=== PATIENT | male | born 1965 | race Caucasian/White ===

== ENCOUNTER 2025-04-22 16:56 | Inpatient (IN) | payer MEDICAID ==
[2025-04-22] VITALS (11 sets, daily range): BP systolic 97–115; BP diastolic 68–76; PULSE 99–135; RESP 25–40; TEMP 37.2; O2SAT 92–100
[~2025-04-22] VITALS: Ht 172.7 cm; Wt 93.9 kg
[2025-04-22] MEDS: SODIUM CHLORIDE 0.9% (SEPSIS BOLUS) IV ONE (17:20)
[2025-04-22 17:33] LABS: BASOPHILS % 0.9 % (0.0-2.0); EOSINOPHILS % 0.0 % (0.0-5.0); HEMATOCRIT. 36.5 % (42.0-52.0); HEMOGLOBIN. 10.9 g/dL (14.0-18.0); LYMPHOCYTES % 22.3 % (20.0-50.0); MEAN PLATELET VOLUME 10.8 fl (7.4-10.4); MONOCYTES % 2.7 % (2.0-8.0); NEUTROPHILS % 74.1 % (40.0-76.0); PLATELET 298 x1000/uL (130-400); RED BLOOD CELL COUNT 3.79 mill/uL (4.7-6.1); RED CELL DISTRIBUTION WIDTH 18.6 % (11.6-14.6)
[2025-04-22] MEDS: CEFTRIAXONE 1GM/50ML 50 ML IV ONE (17:39)
[2025-04-22 17:45] LABS: INR 1.2
[2025-04-22] MEDS ORDERED: MIDAZOLAM 100MG/100ML PMX 100 ML IV PRN ×2 (17:45→19:30)
[2025-04-22 17:46] LABS: CREATININE 2.6 mg/dL (0.6-1.3)
[2025-04-22 17:48] LABS: ASPARTATE AMINOTRANSFERASE 218 IU/L (<34); BILIRUBIN DIRECT 0.3 mg/dL (<=3.0)
[2025-04-22] MEDS: ALBUTEROL (0.083%) 2.5MG/3ML NEB HHN SCH (17:48)
[2025-04-22] MEDS: IPRATROPIUM BROMIDE (0.02%) 0.5MG/2.5ML NEB HHN SCH (17:48)
[2025-04-22 17:49] LABS: BILIRUBIN TOTAL 0.5 mg/dL (0.1-1.0); PROTEIN TOTAL 6.1 g/dL (6.0-8.3)
[2025-04-22] MEDS: ACETAMINOPHEN 1000MG/100ML 100 ML IV ONE (17:51)
[2025-04-22 17:59] LABS: TROPONIN I HIGH SENSITIVITY 349 ng/L (3.0-53); UREA NITROGEN BLOOD 104 mg/dL (9-23)
[2025-04-22] MEDS: AZITHROMYCIN 500MG/250ML 250 ML IV ONE (18:15)
[2025-04-22] MEDS: SODIUM CHLORIDE 0.9% 1,000 ML IV ONE (18:20)
[2025-04-22 18:55] LABS: BG BASE EXCESS -4.0 mmol/L (-2.0-3.0); BG CARBOXYHEMOGLOBIN 0.3 % (0.5-1.5); BG DEOXYHEMOGLOBIN 1.0 % (0.0-5.0); BG FRACTION INSPIRED OXYGEN 100; BG HCO3 ACT 21.1 mmol/L (21.0-28.0); BG METHEMOGLOBIN 0.3 % (0.5-1.5); BG OXYGEN SATURATION 99.0 % (94.0-98.0); BG OXYHEMOGLOBIN 98.4 % (94.0-98.0); BG PCO2 38.3 mmHg (35.0-48.0); BG PEEP (cmH2O) 5.0 cmH2O; BG PH 7.358 (7.350-7.450); BG PO2 148.7 mmHg (83.0-108.0); BG SAMPLE SITE RIGHT RADIAL; BG TIDAL VOLUME(mL) 500.0 mL; BG TOTAL HEMOGLOBIN 10.4 g/dL (13.5-17.5); BG VENT MODE VENT - AC; BG VENT RATE 18.0 set
[2025-04-22] MEDS: NOREPINEPHRINE 8MG/250ML PMX 250 ML IV PRN (19:15)
[2025-04-22] MEDS ORDERED: GUAIFENESIN 200MG/10ML SUGAR FREE UDC PO PRN (20:45)
[2025-04-22] MEDS ORDERED: ONDANSETRON HCL 4MG/2ML INJ IV PRN (20:45)
[2025-04-22] MEDS ORDERED: DEXTROSE 50% WATER 50ML SYRINGE IV PRN (20:45)
[2025-04-22] MEDS ORDERED: MAGNESIUM/ALUMINUM HYDROXIDE/SIMETHICONE 30ML UDC PO PRN (20:45)
[2025-04-22] MEDS: BLOOD SUGAR DIAGNOSTIC STRIP TEST SCH (21:00)
[2025-04-22] MEDS ORDERED: LEVETIRACETAM 500MG in NACL 100ML PREMIX IV SCH (21:15)
[2025-04-22] MEDS ORDERED: DOCUSATE SODIUM SUGAR FREE 100MG/10ML UDC PEG PRN (21:29)
[2025-04-22] MEDS ORDERED: IPRATROPIUM/ALBUTEROL 0.5-3(2.5)MG/3ML NEB HHN PRN (21:29)
[2025-04-22 22:17] LABS: FOLIC ACID (FOLATE) SERUM > 20.00 ng/mL (>5.38); VITAMIN B12 SERUM 595 pg/mL (211-911)
[2025-04-22] MEDS: SODIUM CHLORIDE 0.45% 1,000 ML IV SCH (22:25)
[2025-04-22] MEDS: METHYLPREDNISOLONE SOD SUCC 125MG/2ML (ACT-O-VIAL) IV NR (22:28)
[2025-04-22] MEDS: LEVETIRACETAM 500MG PREMIX 100 ML IV SCH (22:28)
[2025-04-22] MEDS: PIPERACILLIN/TAZO 3.375G/50ML 50 ML IV NR (22:28)
[2025-04-22] MEDS: INSULIN LISPRO 100 UNITS/ML SUBCUT SCH (22:29)
[2025-04-22] MEDS: PROPOFOL 10MG/ML 100ML 100 ML IV PRN (22:51)
[2025-04-23] VITALS (103 sets, daily range): BP systolic 69–131; BP diastolic 45–97; PULSE 68–152; RESP 16–38; TEMP 36.7–38; O2SAT 91–100
[2025-04-23] MEDS: VANCOMYCIN 1G PREMIX 200 ML IV NR (00:31)
[2025-04-23] MEDS: MIDAZOLAM 100MG/100ML PMX 100 ML IV PRN (02:14)
[2025-04-23] MEDS: ACETAMINOPHEN 325MG TABLET NG PRN ×2 (02:54→09:05)
[2025-04-23 04:49] LABS: HEMATOCRIT. 34.3 % (42.0-52.0); HEMOGLOBIN. 10.3 g/dL (14.0-18.0); MEAN PLATELET VOLUME 11.0 fl (7.4-10.4); PLATELET 299 x1000/uL (130-400); RED BLOOD CELL COUNT 3.52 mill/uL (4.7-6.1); RED CELL DISTRIBUTION WIDTH 18.4 % (11.6-14.6)
[2025-04-23 05:03] LABS: CREATININE 2.6 mg/dL (0.6-1.3); TRIGLYCERIDE 294 mg/dL (0-150); UREA NITROGEN BLOOD 97 mg/dL (9-23)
[2025-04-23 05:04] LABS: LDL CHOLESTEROL 24 mg/dL (5-100)
[2025-04-23 05:41] LABS: CLARITY URINE TURBID (CLEAR); COLOR URINE DARK YELLOW (YELLOW); GLUCOSE URINE TRACE (NEGATIVE); KETONES URINE TRACE (NEGATIVE); LEUKOCYTE ESTERASE URINE 2+ (NEGATIVE); NITRITE URINE NEGATIVE (NEGATIVE); OCCULT BLOOD URINE 3+ (NEGATIVE); PH URINE 5.0 (4.5-8.0); PROTEIN URINE 3+ (NEGATIVE); SPECIFIC GRAVITY URINE 1.027 (1.005-1.030); UROBILINOGEN URINE 1.0 E.U./dL (0.2-1.0)
[2025-04-23] MEDS: CEFEPIME 1GM PREMIX 50ML IV SCH (05:50)
[2025-04-23] MEDS: LEVOTHYROXINE SODIUM 75MCG TABLET PEG SCH (05:51)
[2025-04-23 06:31] LABS: BACTERIA URINE 2+; SQUAMOUS EPITHELIAL CELL URINE 1+ /lpf (RARE/1+); WBC URINE 15-25 /hpf (0-2)
[2025-04-23 06:32] LABS: AMORPHOUS SEDIMENT URINE 2+ /lpf
[2025-04-23] MEDS ORDERED: CEFEPIME 1GM IN DEXT 5% 50ML IV SCH (07:00)
[2025-04-23 07:03] LABS: BAND% 9.0 % (1.0-6.0); LYMPHOCYTES % MANUAL 22.0 % (20.0-50.0); NEUTROPHILS % MANUAL 69.0 % (45.0-75.0); NUCLEATED RED BLOOD CELLS 4 /100 WBC
[2025-04-23 07:04] LABS: PLATELET ESTIMATE NORMAL
[2025-04-23 07:07] LABS: TROPONIN I HIGH SENSITIVITY 287 ng/L (3.0-53)
[2025-04-23 07:23] LABS: INFLUENZA TYPE A Presumptive Negative (Pres. Neg.); INFLUENZA TYPE B Presumptive Negative (Pres. Neg.)
[2025-04-23 07:24] LABS: RESPIRATORY SYNCYTIAL VIRUS Not Detected (Not Detectd)
[2025-04-23] MEDS ORDERED: PIPERACILLIN/TAZO 3.375G/50ML 50 ML IV SCH (09:00)
[2025-04-23] MEDS: ENOXAPARIN 30MG/0.3ML SYR SUBCUT SCH (09:04)
[2025-04-23] MEDS: VANCOMYCIN 750MG PREMIX 150 ML IV SCH (09:19)
[2025-04-23] MEDS: FLUCONAZOLE 200MG/5ML ORAL SYR GT SCH (10:00)
[2025-04-23 11:01] LABS: TROPONIN I HIGH SENSITIVITY 233 ng/L (3.0-53)
[2025-04-23] MEDS ORDERED: VANCOMYCIN 750MG PREMIX 150 ML IV SCH (15:00)
[2025-04-23 15:56] LABS: BG BASE EXCESS -2.4 mmol/L (-2.0-3.0); BG CARBOXYHEMOGLOBIN 0.5 % (0.5-1.5); BG DEOXYHEMOGLOBIN 4.9 % (0.0-5.0); BG FRACTION INSPIRED OXYGEN 40; BG HCO3 ACT 20.7 mmol/L (21.0-28.0); BG METHEMOGLOBIN 0.3 % (0.5-1.5); BG OXYGEN SATURATION 95.1 % (94.0-98.0); BG OXYHEMOGLOBIN 94.3 % (94.0-98.0); BG PCO2 29.8 mmHg (35.0-48.0); BG PEEP (cmH2O) 5.0 cmH2O; BG PH 7.459 (7.350-7.450); BG PO2 77.7 mmHg (83.0-108.0); BG SAMPLE SITE RIGHT RADIAL; BG TIDAL VOLUME(mL) 500.0 mL; BG TOTAL HEMOGLOBIN 10.3 g/dL (13.5-17.5); BG VENT MODE VENT - AC; BG VENT RATE 18.0 set
[2025-04-23] MEDS: ENOXAPARIN 60MG/0.6ML SYR SUBCUT SCH (17:00)
[2025-04-23] MEDS ORDERED: AZITHROMYCIN 500MG/250ML 250 ML IV SCH (18:00)
[2025-04-23] MEDS: AZITHROMYCIN 500MG/250ML 250 ML IV SCH (18:33)
[2025-04-23] MEDS: CEFEPIME 2GM/100ML 100 ML IV SCH (18:33)
[2025-04-23] MEDS: METRONIDAZOLE 500MG TABLET PO SCH (21:16)
[2025-04-23 21:36] LABS: CREATININE 2.3 mg/dL (0.6-1.3); UREA NITROGEN BLOOD 86 mg/dL (9-23)
[2025-04-23 21:38] LABS: PHOSPHORUS 4.0 mg/dL (2.5-4.9)
[2025-04-23 21:48] LABS: TROPONIN I HIGH SENSITIVITY 189 ng/L (3.0-53)
[2025-04-24] VITALS (106 sets, daily range): BP systolic 84–110; BP diastolic 57–78; PULSE 64–131; RESP 7–38; TEMP 36.3–38; O2SAT 96–100
[2025-04-24 05:39] LABS: BASOPHILS % 1.0 % (0.0-2.0); EOSINOPHILS % 0.4 % (0.0-5.0); HEMATOCRIT. 30.6 % (42.0-52.0); HEMOGLOBIN. 9.3 g/dL (14.0-18.0); LYMPHOCYTES % 18.7 % (20.0-50.0); MEAN PLATELET VOLUME 10.7 fl (7.4-10.4); MONOCYTES % 1.7 % (2.0-8.0); NEUTROPHILS % 78.2 % (40.0-76.0); PLATELET 185 x1000/uL (130-400); RED BLOOD CELL COUNT 3.23 mill/uL (4.7-6.1); RED CELL DISTRIBUTION WIDTH 18.1 % (11.6-14.6)
[2025-04-24 05:50] LABS: CREATININE 2.0 mg/dL (0.6-1.3); UREA NITROGEN BLOOD 84 mg/dL (9-23)
[2025-04-24 05:52] LABS: PHOSPHORUS 3.5 mg/dL (2.5-4.9)
[2025-04-24 06:04] LABS: C REACTIVE PROTEIN HIGH SENS 105.10 mg/l (<1.00)
[2025-04-24 06:16] LABS: ERYTHROCYTE SEDIMENTATION RATE 91 mm/hr (0-20)
[2025-04-24] MEDS: ASPIRIN 81MG TABLET NG SCH (08:13)
[2025-04-24] MEDS: ENOXAPARIN 80MG/0.8ML SYR SUBCUT SCH (08:14)
[2025-04-24] MEDS: LACTATED RINGERS 1,000 ML IV SCH (09:27)
[2025-04-24] MEDS: VANCOMYCIN 750MG/150ML (BAXTER) IV SCH (12:31)
[2025-04-24] MEDS: ACETAMINOPHEN 650MG/20.3ML UDC NG PRN (12:43)
[2025-04-24 14:08] LABS: BG BASE EXCESS 0.0 mmol/L (-2.0-3.0); BG CARBOXYHEMOGLOBIN 0.3 % (0.5-1.5); BG DEOXYHEMOGLOBIN 3.4 % (0.0-5.0); BG FRACTION INSPIRED OXYGEN 40; BG HCO3 ACT 22.8 mmol/L (21.0-28.0); BG METHEMOGLOBIN 0.3 % (0.5-1.5); BG OXYGEN SATURATION 96.6 % (94.0-98.0); BG OXYHEMOGLOBIN 96.0 % (94.0-98.0); BG PCO2 30.0 mmHg (35.0-48.0); BG PEEP (cmH2O) 5.0 cmH2O; BG PH 7.498 (7.350-7.450); BG PO2 87.1 mmHg (83.0-108.0); BG SAMPLE SITE RIGHT RADIAL; BG TIDAL VOLUME(mL) 500.0 mL; BG TOTAL HEMOGLOBIN 9.5 g/dL (13.5-17.5); BG VENT MODE VENT - AC; BG VENT RATE 18.0 set
[2025-04-24] MEDS: GUAIFENESIN 200MG/10ML SUGAR FREE UDC PO SCH (17:19)
[2025-04-24] MEDS: IPRATROPIUM/ALBUTEROL 0.5-3(2.5)MG/3ML NEB HHN SCH (19:57)
[2025-04-24] MEDS ORDERED: DEXMEDETOMIDINE 100 ML IV PRN (20:15)
[2025-04-25] VITALS (75 sets, daily range): BP systolic 81–108; BP diastolic 63–86; PULSE 9–118; RESP 16–34; TEMP 36.3–37.6; O2SAT 95–100
[2025-04-25] MEDS: ACETYLCYSTEINE 200MG/ML 20% VIAL 4ML INH SCH (02:14)
[2025-04-25 05:41] LABS: PLATELET 133 x1000/uL (130-400); RED BLOOD CELL COUNT 2.98 mill/uL (4.7-6.1); RED CELL DISTRIBUTION WIDTH 17.7 % (11.6-14.6)
[2025-04-25 05:54] LABS: CREATININE 1.3 mg/dL (0.6-1.3); UREA NITROGEN BLOOD 60.0 mg/dL (9-23)
[2025-04-25 09:01] LABS: BG BASE EXCESS 0.1 mmol/L (-2.0-3.0); BG CARBOXYHEMOGLOBIN 0.2 % (0.5-1.5); BG DEOXYHEMOGLOBIN 2.8 % (0.0-5.0); BG FRACTION INSPIRED OXYGEN 40; BG HCO3 ACT 23.0 mmol/L (21.0-28.0); BG METHEMOGLOBIN 0.3 % (0.5-1.5); BG OXYGEN SATURATION 97.2 % (94.0-98.0); BG OXYHEMOGLOBIN 96.7 % (94.0-98.0); BG PCO2 30.6 mmHg (35.0-48.0); BG PEEP (cmH2O) 8.0 cmH2O; BG PH 7.494 (7.350-7.450); BG PO2 92.6 mmHg (83.0-108.0); BG SAMPLE SITE RIGHT RADIAL; BG TIDAL VOLUME(mL) 500.0 mL; BG TOTAL HEMOGLOBIN 8.8 g/dL (13.5-17.5); BG TOTAL RESPIRATORY RATE 24 b/min; BG VENT MODE VENT - AC; BG VENT RATE 18.0 set
[2025-04-25] MEDS: DEXTROSE 5% WATER 1,000 ML IV SCH (12:45)
[2025-04-25] MEDS: VANCOMYCIN 1GM PMX (XELLIA) 200 ML IV SCH (14:17)
[2025-04-25] MEDS: CEFEPIME 2GM/100ML 100 ML IV SCH (14:17)
[2025-04-26] VITALS (104 sets, daily range): BP systolic 91–120; BP diastolic 61–84; PULSE 82–122; RESP 20–35; TEMP 36.6–37.2; O2SAT 94–100
[2025-04-26] MEDS: ACETAMINOPHEN 650MG/20.3ML UDC NG PRN (05:29)
[2025-04-26 06:01] LABS: BASOPHILS % 0.4 % (0.0-2.0); EOSINOPHILS % 1.6 % (0.0-5.0); HEMATOCRIT. 26.4 % (42.0-52.0); HEMOGLOBIN. 7.9 g/dL (14.0-18.0); LYMPHOCYTES % 15.1 % (20.0-50.0); MEAN PLATELET VOLUME 10.5 fl (7.4-10.4); MONOCYTES % 1.1 % (2.0-8.0); NEUTROPHILS % 81.8 % (40.0-76.0); PLATELET 132 x1000/uL (130-400); RED BLOOD CELL COUNT 2.77 mill/uL (4.7-6.1); RED CELL DISTRIBUTION WIDTH 17.8 % (11.6-14.6)
[2025-04-26 06:17] LABS: CREATININE 0.9 mg/dL (0.6-1.3); UREA NITROGEN BLOOD 36 mg/dL (9-23)
[2025-04-26 08:29] LABS: BG BASE EXCESS -2.2 mmol/L (-2.0-3.0); BG CARBOXYHEMOGLOBIN 0.9 % (0.5-1.5); BG DEOXYHEMOGLOBIN 0.7 % (0.0-5.0); BG FRACTION INSPIRED OXYGEN 50; BG HCO3 ACT 21.2 mmol/L (21.0-28.0); BG METHEMOGLOBIN 0.2 % (0.5-1.5); BG OXYGEN SATURATION 99.3 % (94.0-98.0); BG OXYHEMOGLOBIN 98.2 % (94.0-98.0); BG PCO2 30.7 mmHg (35.0-48.0); BG PEEP (cmH2O) 8.0 cmH2O; BG PH 7.457 (7.350-7.450); BG PO2 142.0 mmHg (83.0-108.0); BG SAMPLE SITE LEFT RADIAL; BG TIDAL VOLUME(mL) 500.0 mL; BG TOTAL HEMOGLOBIN 8.4 g/dL (13.5-17.5); BG VENT MODE VENT - AC; BG VENT RATE 18.0 set
[2025-04-26 09:31] LABS: FOLIC ACID (FOLATE) SERUM 17.11 ng/mL (>5.38)
[2025-04-26 09:32] LABS: VITAMIN B12 SERUM 1009 pg/mL (211-911)
[2025-04-26] MEDS: PANTOPRAZOLE SODIUM 40 MG/VIAL IV SCH (10:19)
[2025-04-26] MEDS: VANCOMYCIN 750MG PREMIX 150 ML IV SCH (15:07)
[2025-04-27] VITALS (92 sets, daily range): BP systolic 96–124; BP diastolic 66–87; PULSE 64–114; RESP 17–31; TEMP 36.4–37.3; O2SAT 99–100
[2025-04-27 05:34] LABS: CREATININE 0.8 mg/dL (0.6-1.3); UREA NITROGEN BLOOD 25 mg/dL (9-23)
[2025-04-27 05:39] LABS: PLATELET 115 x1000/uL (130-400); RED BLOOD CELL COUNT 2.64 mill/uL (4.7-6.1); RED CELL DISTRIBUTION WIDTH 16.9 % (11.6-14.6)
[2025-04-27 09:33] LABS: BG BASE EXCESS -0.7 mmol/L (-2.0-3.0); BG CARBOXYHEMOGLOBIN 1.7 % (0.5-1.5); BG DEOXYHEMOGLOBIN 0.9 % (0.0-5.0); BG FRACTION INSPIRED OXYGEN 40; BG HCO3 ACT 22.3 mmol/L (21.0-28.0); BG METHEMOGLOBIN 0.3 % (0.5-1.5); BG OXYGEN SATURATION 99.1 % (94.0-98.0); BG OXYHEMOGLOBIN 97.1 % (94.0-98.0); BG PCO2 29.9 mmHg (35.0-48.0); BG PEEP (cmH2O) 5.0 cmH2O; BG PH 7.490 (7.350-7.450); BG PO2 131.2 mmHg (83.0-108.0); BG SAMPLE SITE LEFT RADIAL; BG TIDAL VOLUME(mL) 500.0 mL; BG TOTAL HEMOGLOBIN 7.9 g/dL (13.5-17.5); BG VENT MODE VENT - AC; BG VENT RATE 14.0 set
[2025-04-27 12:11] LABS: PHOSPHORUS 2.6 mg/dL (2.5-4.9)
[2025-04-27] MEDS: POTASSIUM CHLORIDE 20MEQ/PACKET PO SCH (12:45)
[2025-04-27] MEDS: SODIUM HYPOCHLORITE 0.125% 473ML SOLUTION TOP SCH (12:45)
[2025-04-27 13:40] LABS: BG BASE EXCESS -1.9 mmol/L (-2.0-3.0); BG CARBOXYHEMOGLOBIN 0.9 % (0.5-1.5); BG DEOXYHEMOGLOBIN 1.2 % (0.0-5.0); BG FRACTION INSPIRED OXYGEN 40; BG HCO3 ACT 20.7 mmol/L (21.0-28.0); BG METHEMOGLOBIN 0.1 % (0.5-1.5); BG OXYGEN SATURATION 98.8 % (94.0-98.0); BG OXYHEMOGLOBIN 97.8 % (94.0-98.0); BG PCO2 26.8 mmHg (35.0-48.0); BG PEEP (cmH2O) 5.0 cmH2O; BG PH 7.505 (7.350-7.450); BG PO2 121.5 mmHg (83.0-108.0); BG SAMPLE SITE RIGHT RADIAL; BG TOTAL HEMOGLOBIN 8.2 g/dL (13.5-17.5); BG VENT MODE VENT - CPAP
[2025-04-28] VITALS (86 sets, daily range): BP systolic 91–129; BP diastolic 61–86; PULSE 62–120; RESP 8–27; TEMP 36.2–36.8; O2SAT 97–100
[2025-04-28 05:27] LABS: CREATININE 0.6 mg/dL (0.6-1.3); UREA NITROGEN BLOOD 13 mg/dL (9-23)
[2025-04-28 10:56] LABS: PLATELET 124 x1000/uL (130-400); RED BLOOD CELL COUNT 2.60 mill/uL (4.7-6.1); RED CELL DISTRIBUTION WIDTH 16.8 % (11.6-14.6)
[2025-04-28] MEDS: VANCOMYCIN 1G PREMIX 200 ML IV SCH (20:29)
[2025-04-29] VITALS (57 sets, daily range): BP systolic 103–134; BP diastolic 71–96; PULSE 74–131; RESP 3–27; TEMP 36.4–37; O2SAT 93–100
[2025-04-30] VITALS (57 sets, daily range): BP systolic 98–138; BP diastolic 74–104; PULSE 63–121; RESP 10–27; TEMP 36.4–37.2; O2SAT 83–100
[2025-04-30 05:33] LABS: BASOPHILS % 0.3 % (0.0-2.0); EOSINOPHILS % 0.4 % (0.0-5.0); HEMATOCRIT. 26.1 % (42.0-52.0); HEMOGLOBIN. 8.0 g/dL (14.0-18.0); LYMPHOCYTES % 19.9 % (20.0-50.0); MEAN PLATELET VOLUME 10.6 fl (7.4-10.4); MONOCYTES % 4.5 % (2.0-8.0); NEUTROPHILS % 74.9 % (40.0-76.0); PLATELET 116 x1000/uL (130-400); RED BLOOD CELL COUNT 2.83 mill/uL (4.7-6.1); RED CELL DISTRIBUTION WIDTH 17.1 % (11.6-14.6)
[2025-04-30 05:39] LABS: CREATININE 0.6 mg/dL (0.6-1.3)
[2025-04-30 05:41] LABS: UREA NITROGEN BLOOD 11 mg/dL (9-23)
[2025-04-30] MEDS: ENOXAPARIN 100MG/ML SYR SUBCUT SCH (09:55)
[2025-04-30] MEDS ORDERED: POTASSIUM CHLORIDE 40 MEQ in DEXT 5% WATER 230 ML IV ONE (18:15)
[2025-04-30] MEDS: KCL 20MEQ/100ML X 2 FOR TOTAL KCL 40MEQ/200ML IV SCH (18:43)
[2025-05-01] VITALS (44 sets, daily range): BP systolic 87–132; BP diastolic 54–98; PULSE 64–114; RESP 14–35; TEMP 36.1–37.8; O2SAT 93–100
[2025-05-01 06:38] LABS: CREATININE 0.5 mg/dL (0.6-1.3); UREA NITROGEN BLOOD 9 mg/dL (9-23)
[2025-05-01 08:36] LABS: BASOPHILS % 0.5 % (0.0-2.0); EOSINOPHILS % 0.2 % (0.0-5.0); HEMATOCRIT. 24.8 % (42.0-52.0); HEMOGLOBIN. 8.0 g/dL (14.0-18.0); LYMPHOCYTES % 23.3 % (20.0-50.0); MEAN PLATELET VOLUME 9.6 fl (7.4-10.4); MONOCYTES % 3.7 % (2.0-8.0); NEUTROPHILS % 72.3 % (40.0-76.0); PLATELET 167 x1000/uL (130-400); RED BLOOD CELL COUNT 2.77 mill/uL (4.7-6.1); RED CELL DISTRIBUTION WIDTH 16.7 % (11.6-14.6)
[2025-05-02] VITALS (12 sets, daily range): BP systolic 93–124; BP diastolic 39–79; PULSE 84–113; RESP 21–34; TEMP 36.1–37.3; O2SAT 92–99
[2025-05-02] MEDS: BLOOD SUGAR DIAGNOSTIC STRIP TEST SCH (08:00)
[2025-05-02] MEDS: INSULIN LISPRO 100 UNITS/ML SUBCUT SCH (08:00)
[2025-05-03] VITALS (12 sets, daily range): BP systolic 93–147; BP diastolic 67–83; PULSE 83–106; RESP 15–32; TEMP 36.1–37.7; O2SAT 94–98
[2025-05-04] VITALS (9 sets, daily range): BP systolic 103–137; BP diastolic 76–92; PULSE 80–108; RESP 17–26; TEMP 36.6–37.4; O2SAT 94–100
[2025-05-04] MEDS ORDERED: LIDOCAINE HCL 1% 10 MG/ML 10ML VIAL ONE (08:22)
== END 2025-05-04 16:54 | DRG 720 ==
LOC: ER 16:56 → MICUNO 18:43 → EDBEDREQ 18:45 → EDBEDREQTM 18:45 → 5EST 05-01 12:20
PROVIDERS: ADMIT Internal Medicine; ATTEND Internal Medicine
PROC: 5A1955Z Respiratory Ventilation, Greater than 96 Consecutive Hours (ICD-10-PCS; 2025-04-22)
PROC: 0BH17EZ Insertion of Endotracheal Airway into Trachea, Via Natural or Artificial Opening (ICD-10-PCS; 2025-04-22)
PROC: 02HV33Z Insertion of Infusion Device into Superior Vena Cava, Percutaneous Approach (ICD-10-PCS; principal; 2025-05-04)
PROC: B548ZZA Ultrasonography of Superior Vena Cava, Guidance (ICD-10-PCS; 2025-05-04)
DX: A41.9 Sepsis, unspecified organism (principal); R65.21 Severe sepsis with septic shock; J96.01 Acute respiratory failure with hypoxia; G93.41 Metabolic encephalopathy; E87.20 Acidosis, unspecified; M46.28 Osteomyelitis of vertebra, sacral and sacrococcygeal region; I82.413 Acute embolism and thrombosis of femoral vein, bilateral; L89.523 Pressure ulcer of left ankle, stage 3; L89.513 Pressure ulcer of right ankle, stage 3; L89.154 Pressure ulcer of sacral region, stage 4; E87.0 Hyperosmolality and hypernatremia; E78.5 Hyperlipidemia, unspecified; J44.0 Chronic obstructive pulmonary disease with (acute) lower respiratory infection; N39.0 Urinary tract infection, site not specified; I10 Essential (primary) hypertension; Z16.21 Resistance to vancomycin; I21.A1 Myocardial infarction type 2; N17.9 Acute kidney failure, unspecified; N40.0 Benign prostatic hyperplasia without lower urinary tract symptoms; E03.9 Hypothyroidism, unspecified; I82.433 Acute embolism and thrombosis of popliteal vein, bilateral; D64.9 Anemia, unspecified; L89.220 Pressure ulcer of left hip, unstageable; E61.1 Iron deficiency; I49.3 Ventricular premature depolarization; D75.839 Thrombocytosis, unspecified; F20.9 Schizophrenia, unspecified; G20.A1 Parkinson's disease without dyskinesia, without mention of fluctuations; J98.11 Atelectasis; G40.909 Epilepsy, unspecified, not intractable, without status epilepticus; L89.896 Pressure-induced deep tissue damage of other site; J18.9 Pneumonia, unspecified organism; E86.1 Hypovolemia; Z74.01 Bed confinement status; Z93.1 Gastrostomy status; I69.30 Unspecified sequelae of cerebral infarction; Z79.01 Long term (current) use of anticoagulants; Z79.82 Long term (current) use of aspirin; Z79.899 Other long term (current) drug therapy; Z87.440 Personal history of urinary (tract) infections
CPT/HCPCS: 31720; 36415; 36573; 36600; 71045; 74176; 78580; 80048; 80061; 80076; 80202; 81003; 82270; 82375; 82607; 82746; 82805; 82962; 83036; 83540; 83550; 83605; 83735; 83880; 84100; 84145; 84295; 84443; 84484; 85025; 85027; 85044; 85651; 86141; 87070; 87077; 87186; 87420; 87804; 93005; 93970; 93971; 94002; 94003; 94070; 94640; 94664; 94760; 96365; 96366; 96368; 97162; 97165; 98960; 99291; A4606; A6261; C1725; C1769; J0456; J0692; J0696; J1650; J1815; J1953; J2003; J2250; J2470; J2543; J2704; J2919; J3373; J3480; J3490; J7030; J7070; J7120; J7608; J0131

== ENCOUNTER 2025-07-02 04:53 | Emergency (ER) | payer MEDICAID ==
[~2025-07-02] VITALS: Ht 172.7 cm; Wt 91.0 kg
== END 2025-07-02 05:06 ==
LOC: ER 04:53
DX: I46.9 Cardiac arrest, cause unspecified (principal); I10 Essential (primary) hypertension; E11.9 Type 2 diabetes mellitus without complications; J44.9 Chronic obstructive pulmonary disease, unspecified
CPT/HCPCS: 31500; 99285; Z7610